=== PATIENT | male | born 1980 | race Caucasian/White ===

== ENCOUNTER 2017-12-02 16:51 | Emergency (ER) | payer BC ==
--- NOTE | 2017-12-02 17:18 | EDPHY ---
H & P Stated Complaint: sore throat HIV+ elevated WBC Time Seen by Provider: 12/02/17 16:52 - Personal History Current Tetanus/Diphtheria Vaccine: Unsure Current Tetanus Diphtheria and Acellular Pertussis (TDAP): Unsure - Medical/Surgical History Hx Asthma: No Hx Chronic Respiratory Disease: No Hx Diabetes: No Hx Cardiac Disease: No Hx Renal Disease: No Hx Cirrhosis: No Hx Alcoholism: No Hx HIV/AIDS: No Hx Splenectomy or Spleen Trauma: No Other PMH: HIV+ depression - Social History Smoking Status: Never smoked Constitutional: Initial Vital Signs Temperature (C) 37.4 C 12/02/17 16:54 Heart Rate 120 H 12/02/17 16:54 Respiratory Rate 16 12/02/17 16:54 Blood Pressure 111/70 12/02/17 16:54 O2 Sat (%) 96 12/02/17 16:54 O2 Delivery Mode Room Air Allergies/Adverse Reactions: No Known Allergies Allergy (Unverified 12/02/17 16:58) Medical Decision Making ED Course/Re-evaluation: CHIEF COMPLAINT: Diarrhea HISTORY OF PRESENT ILLNESS: The patient is a 37 y/o male with a history of HIV complaining of diarrhea onset Wednesday evening, 2 days ago. The rate at which he is having diarrhea is similar to a prior Giardia episode. He denies drinking or eating abnormal food recently. Due to these symptoms he went to [facility] and was diagnosed with gastroenteritis and an elevated white blood cell count of 20.1 and a left shift. Due to this elevated WBC, they sent the patient to this emergency department. They also thought the patient had strep throat so they prescribed him Amoxicillin. His last viral load was undetectable. Denies headache, chest pain, shortness of breath, numbness, nausea, paresthesias, fever. REVIEW OF SYSTEMS: A 10 point review of systems was performed and is negative with the exception of the elements mentioned in the history of present illness. PHYSICAL EXAM: HR, BP, O2 Sat, RR. Temp noted General Appearance: Alert, well hydrated, appropriate, and non-toxic appearing. Head: Atraumatic without scalp tenderness or obvious injury Eyes: Pupils equal, round, reactive to light and accommodation, EOMI, no trauma , no injection. Ears: Clear bilaterally, no perforation, normal landmarks Nose: Atraumatic, no rhinorrhea, clear. Throat: There is mild erythema, no exudates, no lesions, normal tonsils, mucus membranes moist. Neck: Supple, nontender, no lymphadenopathy. Respiratory: No retractions, no distress, no wheezes, and no accessory muscle use. Lungs are clear to auscultation bilaterally. Cardiovascular: Regular rate and rhythm, no murmurs, rubs, or gallops. Bilateral carotid, radial, dorsalis pedis, and posterior tibial pulses intact. Good capillary refill all extremities. Gastrointestinal: Abdomen is soft, nontender, non-distended, no masses, no rebound, no guarding, no peritoneal signs. Musculoskeletal: Normal active ROM of all extremities, atraumatic. Neurological: Alert, appropriate, and interactive. Nonfocal neuro. Skin: No rashes, good turgor, no nodules on palpation. Past medical history: HIV, depression Past surgical history: Denies Family history: Denies Social history: Originally from [place], single, employed DIFFERENTIAL DIAGNOSIS: The differential diagnosis for the patient's diarrhea included but was not limited to enteritis, dehydration, gastroenteritis, gastritis, appendicitis, and medication side effect. MEDICAL DECISION MAKING: The patient is a 37 y/o male with a history of HIV presenting with diarrhea onset Wednesday evening, 2 days ago. He has a normal physical exam including a benign abdomen. GI Pathogen panel ordered. 193: Patient's GI Pathogen panel reveals no treatable organisms. 194: Reassessed patient and discussed laboratory findings. I have advised him to increase is fluid intake. Return precautions provided; patient is comfortable with this plan. - Data Points Laboratory Results: 12/02/17 18:00 Stool Concentration Pending Stool Occult Bld Scrn NEGATIVE (NEGATIVE) Stool Ova & Parasites LIQUID BROWN STOOL Parasite Trichrome Pending C. difficile Tox (PCR) Cancelled Direct Microscop Exam NONE SEEN (NONE SEEN) Microbiology Results: MICROBIOLOGY 12/02/17 18:00 Stool Gastrointestinal Tract Panel (PCR) - Final No Organism Detected Departure - Departure Disposition: Home, Routine, Self-Care Clinical Impression: Enteritis, Dehydration Diarrhea Qualifiers: Diarrhea type: unspecified type Qualified Code(s): R19.7 - Diarrhea, unspecified Condition: Good Instructions: Dehydration (ED), Acute Diarrhea (ED), Enteritis (ED) Additional Instructions: 1. Increase fluid intake. 2. Follow-up with your primary doctor within 72 hours. 3. Return to the Emergency Department for fever, chest pain, shortness of breath , increasing pain, or other worsening of condition. Referrals: PT,[email or web address] [Other] - As per Instructions Report Scribed for: Johnie Gonzales Report Scribed by: Sumi Christian Date of Report: 12/02/17 Time of Report: 17:18
[2017-12-02 19:47] VITALS: BP 116/71
== END 2017-12-02 19:49 | disposition home or self-care (01) ==
DX: K52.9 Noninfective gastroenteritis and colitis, unspecified (principal); E86.0 Dehydration; B20 Human immunodeficiency virus [HIV] disease